=== PATIENT | female | born 1965 | race Caucasian/White ===

== ENCOUNTER → 2017-12-01 | Outpatient (CLI) | payer OTHER ==
[2017-12-01 09:55] LABS: ALBUMIN 4.2 g/dL (3.4-5.0); ALKALINE PHOSPHATASE 86 U/L (46-116); ANION GAP 7 mmol/L (7-16); BUN 16 mg/dL (7-18); CALCIUM 9.2 mg/dL (8.5-10.1); CHLORIDE 103 mmol/L (98-107); CHOLESTEROL 255 mg/dL (<200); CO2 31 mmol/L (21-32); CREATININE 0.7 mg/dL (0.6-1.3); GLUCOSE 92 mg/dL (70-99); HDL CHOLESTEROL 66 mg/dL (>40); LDL CHOLESTEROL 165 mg/dL (<100); POTASSIUM 4.2 mmol/L (3.5-5.1); SGOT 28 U/L (15-37); SGPT 30 U/L (30-65); SODIUM 141 mmol/L (136-145); TC:HDL 3.9 Ratio (Not establshd); TOTAL BILIRUBIN 0.3 mg/dL (<0.1-1.0); TRIGLYCERIDE 124 mg/dL (<150); VLDL 25 mg/dL (<40)
[2017-12-01 09:57] LABS: SERUM ASSESSMENT Clear
[2017-12-01 22:08] LABS: LDL (DIRECT) CHOL 173 mg/dL (0-99)
[2017-12-02 03:09] LABS: GLYCOHEMOGLOBIN (HGB A1C) 5.7 % (4.8-5.6)
== END ==
LOC: M.LAB 08:59
PROVIDERS: Family Medicine
DX: E78.5 Hyperlipidemia, unspecified (principal); E73.9 Lactose intolerance, unspecified